=== PATIENT | female | born 1995 | race American Indian/Alaskan Native ===

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

== ENCOUNTER 2017-03-11 20:33 | Inpatient (IN) | payer OTHER ==
[2017-03-11] MEDS ORDERED: XYLOCAINE 2% INFILTRATI ONE (20:42)
[2017-03-11] MEDS ORDERED: MINERAL OIL PO PRN (20:42)
[2017-03-11] MEDS ORDERED: BRETHINE SUB-Q PRN (20:42)
[2017-03-11] MEDS ORDERED: BRETHINE IVP PRN (20:42)
[2017-03-11] MEDS ORDERED: CERVIDIL VG ONE (20:42)
[2017-03-11] MEDS ORDERED: SUBLIMAZE IV PRN (20:42)
[2017-03-11] MEDS ORDERED: ePHEDrine SULFATE IV PRN (20:42)
--- NOTE | 2017-03-11 20:51 | History and Physical Report ---
History of Present Illness Date of examination: 03/11/17 Date of admission: 03/11/17 20:33 Chief complaint: Here for induction of labor History of present illness: 21 y/o , now 39.1 weeks gestation here for induction of labor per [facility] rec due to obesity. care at [facility] since 10 weeks gestation. Hx of trich and chlamydia during this . 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: chlamydia, trichomonas Family/Genetic History: none Social history: no significant social history - Obstetrical History Expected Date of Delivery: 03/18/17 Actual Gestation: 39 Week(s) 1 Day(s) : 1 Para: 0 Number of Living Children: 0 Medications and Allergies Allergies Allergy/AdvReac Type Severity Reaction Status Date / Time cefpodoxime proxetil Allergy Hives Verified 09/23/15 09:37 [From Vantin] Home Medications Medication Instructions Recorded Confirmed Last Taken Type Acetaminophen [Tylenol] 1,000 mg PO Q6HR 03/11/17 03/11/17 03/10/17 History Review of Systems All systems: negative - Vital Signs Vital signs: Vital Signs Pulse Pulse Ox 123 H 97 03/11/17 20:48 03/11/17 20:48 Temp Pulse Resp BP Pulse Ox 123 H 97 03/11/17 20:48 03/11/17 20:48 - Physical Exam Breasts: Positive: deferred Cardiovascular: Regular rate Lungs: Positive: Clear to auscultation Abdomen: Positive: soft Genitourinary (Female): Positive: normal external genitalia Vulva: both: normal Vagina: Positive: normal moisture Deep Tendon Reflex Grade: Normal +2 - Obstetrical FHR: category 1 Uterine Contraction Monitor Mode: External Cervical Dilatation: 1 (nurse exam) Cervical Effacement Percentage: 30 station: -4 Uterine Contraction Pattern: Absent Uterine Contraction Intensity: Moderate Results Result Diagrams: 03/11/17 21:40 All other labs normal. Assessment and Plan A: Induction of labor at 39.1 weeks P: Cervadil to be removed this am Begin Pitocin
[2017-03-11] MEDS ORDERED: PITOCin/NS 20 UNIT/1000ML DRIP 20 UNITS/1,000 ML BAG IV SCH (21:00)
[2017-03-11 22:12] LABS: Hematocrit 37.3 % (30.3-42.9); Hemoglobin 12.3 gm/dl (10.1-14.3); Mean Corpuscular HGB Conc 33 % (30-34); Mean Corpuscular Hemoglobin 29 pg (28-32); Mean Corpuscular Volume 87 fl (79-97); Platelet Count 281 K/mm3 (140-440); Red Cell Distribution Width 14.8 % (13.2-15.2); White Blood Count 9.8 K/mm3 (4.5-11.0)
[2017-03-12] MEDS: STADOL IV PRN ×2 (02:43→05:15)
[2017-03-12] MEDS: LACTATED RINGERS 1,000 ML IV SCH ×2 (08:01→12:16)
[2017-03-12] MEDS ORDERED: ZOFRAN IV PRN (08:31)
[2017-03-12] MEDS ORDERED: PITOCin/NS 30 UNIT/500ML 30,000 MILLIUNITS/500 ML BAG IV ONE ×2 (08:32→12:14)
[2017-03-12] MEDS: PITOCin/NS 30 UNIT/500ML 30,000 MILLIUNITS/500 ML BAG IV SCH ×3 (11:00→15:53)
--- NOTE | 2017-03-12 12:07 | Anesthesia Consultation ---
Anesthesia Consult and Med Hx Date of service: 03/12/17 - Airway Anesthetic Teeth Evaluation: Good ROM Head & Neck: Adequate Mental/Hyoid Distance: Adequate Mallampati Class: Class II Intubation Access Assessment: Probably Good - Pre-Operative Health Status ASA Pre-Surgery Classification: ASA3 Proposed Anesthetic Plan: Epidural, Spinal - Pulmonary Hx Asthma: No COPD: No Hx Pneumonia: No - Cardiovascular System Hx Hypertension: No - Central Nervous System Hx Seizures: No Hx Psychiatric Problems: No - Endocrine Hx Renal Disease: No Hx End Stage Renal Disease: No Hx Hypothyroidism: No Hx Hyperthyroidism: No - Hematic Hx Anemia: No Hx Sickle Cell Disease: No - Other Systems Hx Alcohol Use: No Hx Obesity: Yes (Morbid obesity BMI 56.6)
[2017-03-12] MEDS ORDERED: NARCAN 2 MG/2 ML IV PRN (12:08)
[2017-03-12] MEDS ORDERED: ePHEDrine SULFATE IV PRN (12:08)
[2017-03-12] MEDS ORDERED: fentaNYL-BUPIV 2 MCG/ML-0.125% 200 MCG/100 ML BAG EPIDURAL SCH (13:00)
--- NOTE | 2017-03-12 13:34 | Event Note ---
Date: 03/12/17 O: VE 3-4/70/-2, Arom clear fluid, IUPC and FSE placed. Pit at 16 mu Cat I tracing A: Induction of labor due to obesity at 39.1 weeks P: Continue pitocin induction
[2017-03-12] MEDS ORDERED: CYTOTEC ONE (16:51)
[2017-03-12] MEDS ORDERED: CYTOTEC PR ONE (17:25)
[2017-03-12] MEDS ORDERED: PHENERGAN PO PRN (17:28)
[2017-03-12] MEDS ORDERED: BENADRYL PO PRN (17:28)
[2017-03-12] MEDS ORDERED: TUCKS PAD TP PRN ×2 (17:28→22:46)
[2017-03-12] MEDS ORDERED: LANSINOH TP PRN (17:28)
[2017-03-12] MEDS ORDERED: NORCO 5/325 PO PRN (17:28)
[2017-03-12] MEDS ORDERED: TYLENOL PO PRN (17:28)
--- NOTE | 2017-03-12 17:39 | Procedure Note ---
OB Delivery Note - Delivery Surgeon: ORALIA BONILLA Estimated blood loss: other (350) - Vaginal Delivery presentation: vertex Delivery position: OA Delivery induction: cervidil Delivery augmentation: rupture of membranes, pitocin Delivery monitor: external FHT, external uterine, internal FHT, internal uterine Route of delivery: Delivery placenta: spontaneous Delivery cord: 3 umbilical vessels Delivery laceration: 1st degree, other (periurethral) Delivery repair: vicryl Anesthesia: epidural Delivery comments: of a viable male 7#- 6oz at 1644 on 03/12/2017 over 1st degree perineal laceration and periurethral laceration. Repaired with 2-0 and 3-0 vicryl. Placenta delivered 3 VCI. FF @ U-1. Lochia small. Mother and baby doing well. - Infant A at 1 minute: 8 at 5 minutes: 9 Gender: Male (7# 6oz)
[2017-03-12] MEDS ORDERED: SODIUM CHLORIDE FLUSH SYRINGE 10 ML IV NR (18:00)
[2017-03-12] MEDS: MOTRIN PO SCH ×2 (18:17→23:08)
[2017-03-13] MEDS: MOTRIN PO SCH ×4 (05:54→23:23)
[2017-03-13 07:31] LABS: Hemoglobin 10.7 gm/dl (10.1-14.3)
--- NOTE | 2017-03-13 08:41 | Progress Note ---
Subjective Date of service: 03/13/17 Principal diagnosis: post deliver/;labor epidural Interval history: Patient seen post-delivery day 1, comfortable, ambulating, satisfied with anesthesia. Objective - Constitutional Vitals: Vital Signs - 12hr 03/12/17 03/13/17 03/13/17 23:08 00:20 05:54 Temperature 98.6 F Pulse Rate 77 Respiratory 18 16 18 Rate Blood Pressure 121/77 03/13/17 08:20 Temperature 98.1 F Pulse Rate 103 H Respiratory 18 Rate Blood Pressure 118/61 - Labs CBC & Chem 7: 03/13/17 06:45
--- NOTE | 2017-03-13 09:05 | Progress Note ---
Assessment and Plan A: PPD #1 - stable P: Discharge home today Subjective - Subjective Date of service: 03/13/17 Principal diagnosis: post deliver/;labor epidural Interval history: 21 y/o , now 39.1 weeks gestation here for induction of labor per [facility] rec due to obesity. care at [facility] since 10 weeks gestation. Hx of trich and chlamydia during this . Patient reports: appetite normal [place]: doing well Objective - Vital Signs Latest vital signs: Vital Signs Temp Pulse Resp BP Pulse Ox 03/13/17 08:20 98.1 F 103 H 18 118/61 03/13/17 05:54 18 03/13/17 00:20 98.6 F 77 16 121/77 03/12/17 23:08 18 03/12/17 20:00 98.6 F 69 16 114/78 03/12/17 19:05 98.7 F 103 H 20 112/66 03/12/17 18:11 96 H 156/78 03/12/17 17:56 96 H 146/74 03/12/17 17:41 108 H 142/98 03/12/17 17:18 103 H 142/78 03/12/17 17:11 105 H 124/79 03/12/17 16:56 99 H 126/66 03/12/17 16:41 98 H 150/102 03/12/17 16:31 103 H 100 03/12/17 16:30 118 H 54 L 03/12/17 16:26 113 H 144/96 97 03/12/17 16:21 116 H 98 03/12/17 16:16 85 99 03/12/17 16:12 88 133/68 03/12/17 16:11 89 99 03/12/17 16:06 103 H 98 03/12/17 16:01 94 H 99 03/12/17 15:56 102 H 97 03/12/17 15:55 84 135/76 03/12/17 15:51 81 98 03/12/17 15:46 87 98 03/12/17 15:41 92 H 97 03/12/17 15:40 84 131/72 03/12/17 15:36 85 97 03/12/17 15:31 86 97 03/12/17 15:26 105 H 97 03/12/17 15:25 92 H 124/70 03/12/17 15:21 86 98 03/12/17 15:16 82 98 03/12/17 15:11 97 H 98 03/12/17 15:10 88 135/78 03/12/17 15:06 89 97 03/12/17 15:01 91 H 98 03/12/17 14:57 81 140/78 03/12/17 14:56 88 98 03/12/17 14:51 96 H 99 03/12/17 14:46 89 97 03/12/17 14:42 89 133/79 03/12/17 14:41 99 H 98 03/12/17 14:36 86 98 03/12/17 14:31 89 96 03/12/17 14:27 88 138/80 03/12/17 14:26 88 98 03/12/17 14:21 98 H 97 03/12/17 14:16 92 H 98 03/12/17 14:12 100 H 138/80 03/12/17 14:11 98 H 97 03/12/17 14:06 102 H 99 03/12/17 13:57 92 H 129/70 97 03/12/17 13:55 18 03/12/17 13:52 92 H 97 03/12/17 13:47 94 H 97 03/12/17 13:46 98.3 F 92 H 18 123/74 03/12/17 13:42 93 H 98 03/12/17 13:41 85 123/74 03/12/17 13:37 100 H 98 03/12/17 13:32 97 H 98 03/12/17 13:27 90 98 03/12/17 13:25 105 H 130/69 03/12/17 13:22 94 H 96 03/12/17 13:17 93 H 93 03/12/17 13:16 89 93 03/12/17 13:12 83 96 03/12/17 13:10 90 127/72 03/12/17 13:07 90 96 03/12/17 13:06 95 H 94 03/12/17 13:02 89 97 03/12/17 12:59 91 H 93 03/12/17 12:57 86 97 03/12/17 12:56 88 122/65 03/12/17 12:52 93 H 95 03/12/17 12:47 89 97 03/12/17 12:44 76 87 07/31/17 12:42 87 97 03/12/17 12:41 95 H 143/64 03/12/17 12:37 79 97 03/12/17 12:32 94 H 99 03/12/17 12:27 88 97 03/12/17 12:25 94 H 128/61 03/12/17 12:22 95 H 98 03/12/17 12:20 92 H 134/57 03/12/17 12:17 101 H 97 03/12/17 12:16 90 123/60 03/12/17 12:12 95 H 98 03/12/17 12:10 99 H 120/57 03/12/17 12:07 92 H 98 03/12/17 12:06 97 H 123/64 03/12/17 12:05 98.4 F 95 H 18 123/64 03/12/17 12:02 100 H 98 03/12/17 11:59 104 H 107/57 03/12/17 11:58 95 H 122/60 03/12/17 11:57 74 100 03/12/17 11:52 98 H 98 03/12/17 11:51 93 H 127/60 03/12/17 11:49 93 H 141/64 03/12/17 11:47 96 H 134/62 95 03/12/17 11:46 105 H 144/63 03/12/17 11:43 110 H 144/107 03/12/17 11:42 57 L 85 03/12/17 11:41 96 H 136/65 03/12/17 11:39 96 H 135/60 03/12/17 11:38 102 H 132/63 03/12/17 11:37 100 H 99 03/12/17 11:36 80 70 L 03/12/17 11:32 119 H 96 03/12/17 11:27 95 H 97 03/12/17 11:24 92 H 94 03/12/17 11:22 93 H 98 03/12/17 11:17 98 H 97 03/12/17 11:12 105 H 96 03/12/17 11:09 86 133/72 94 03/12/17 11:07 91 H 97 03/12/17 11:02 94 H 99 03/12/17 10:57 90 98 03/12/17 10:52 99 H 99 03/12/17 10:47 90 98 03/12/17 10:42 92 H 96 03/12/17 10:40 98 H 134/69 03/12/17 10:37 95 H 98 03/12/17 10:32 92 H 98 03/12/17 10:27 96 H 98 03/12/17 10:22 95 H 97 03/12/17 10:17 109 H 99 03/12/17 10:12 104 H 97 03/12/17 10:09 99 H 136/71 03/12/17 10:07 111 H 98 03/12/17 10:02 103 H 99 03/12/17 09:58 101 H 135/73 03/12/17 09:57 103 H 99 03/12/17 09:09 100 H 124/71 Intake and Output 03/12/17 03/13/17 03/13/17 22:59 06:59 14:59 Intake Total 550 550 240 Output Total 200 Balance 350 550 240 Intake: Oral 250 250 240 Intake, Free Water 300 300 Output: Urine 200 Uretheral (Arora) 200 Other: Total, Intake Amount 250 250 240 # Voids Void 1 Estimated Blood Loss 350 - Exam Breasts: Present: deferred Cardiovascular: Present: Regular rate Lungs: Present: Clear to auscultation Abdomen: Present: soft Vulva: both: normal Uterus: Present: fundal height below umbilicus Extremities: Present: normal Deep Tendon Reflex Grade: Normal +2
--- NOTE | 2017-03-13 09:07 | Discharge Summary ---
Providers - Providers Date of Admission: 03/11/17 20:33 Date of discharge: 03/13/17 Attending physician: JOE MCCRAY MD Primary care physician: JOE MCCRAY MD Hospitalization Reason for admission: induction of labor Delivery: Episiotomy: none Laceration: 1st degree, other (periurethral) complications: none Discharge diagnosis: IUP at term delivered [place] baby: male Condition at discharge: Good Disposition: DC-01 TO HOME OR SELFCARE Plan - Provider Discharge Summary Activity: routine, no sex for 6 weeks, no strenuous exercise Diet: routine Instructions: routine Additional instructions: [] Smoking cessation referral if applicable(refer to patient education folder for contact #) [] Refer to [employer] Booklet Call your doctor immediately for: * Fever > 100.5 * Heavy vaginal bleeding ( >1 pad per hour) * Severe persistent headache * Shortness of breath * Reddened, hot, painful area to leg or breast * Drainage or odor from incision. * Keep incision clean and dry at all times and follow doctor's instructions regarding bathing/showering - Follow up plan Follow up: [facility] [Provider Group] - 6 Weeks
[2017-03-14] MEDS: MOTRIN PO SCH ×3 (05:18→18:47)
[2017-03-14 17:49] VITALS: BP 96/58
== END 2017-03-14 21:10 | disposition home or self-care (01) | DRG 775 ==
LOC: LD 20:33 → OB 03-12 18:42
PROVIDERS: ADMIT Obstetrics & Gynecology; ATTEND Obstetrics & Gynecology
PROC: 0HQ9XZZ Repair Perineum Skin, External Approach (ICD-10-PCS; principal; 2017-03-12)
PROC: 10E0XZZ Delivery of Products of Conception, External Approach (ICD-10-PCS; 2017-03-12)
PROC: 3E0S3CZ (ICD-10-PCS; 2017-03-12)
PROC: 00HU33Z Insertion of Infusion Device into Spinal Canal, Percutaneous Approach (ICD-10-PCS; 2017-03-12)
PROC: 3E0P7GC Introduction of Other Therapeutic Substance into Female Reproductive, Via Natural or Artificial Opening (ICD-10-PCS; 2017-03-12)
PROC: 10907ZC Drainage of Amniotic Fluid, Therapeutic from Products of Conception, Via Natural or Artificial Opening (ICD-10-PCS; 2017-03-12)
DX: O99.214 Obesity complicating childbirth (principal); Z3A.39 39 weeks gestation of pregnancy; Z68.43 Body mass index [BMI] 50.0-59.9, adult; Z37.0 Single live birth; E66.01 Morbid (severe) obesity due to excess calories; O70.0 First degree perineal laceration during delivery; O98.319 Other infections with a predominantly sexual mode of transmission complicating pregnancy, unspecified trimester; A56.8 Sexually transmitted chlamydial infection of other sites; A59.9 Trichomoniasis, unspecified
CPT/HCPCS: 36415; 59200; 85014; 85018; 85027; 86592; 86850; 86900; 86901; 99211; G0463; J0595; J2405; J2590; J3010; J7120

== ENCOUNTER 2018-12-23 12:21 | Emergency (ER) | payer MEDICAID, OTHER ==
--- NOTE | 2018-12-23 12:51 | Emergency Department Report ---
Blank Doc - Documentation Documentation: This is a 23-year-old female that is about 7 weeks that presents with vaginal bleeding and pelvic cramping. This initial assessment/diagnostic orders/clinical plan/treatment(s) is/are subject to change based on patient's health status, clinical progression and re- assessment by fellow clinical providers in the ED. Further treatment and workup at subsequent clinical providers discretion. Patient/guardians urged not to elope from the ED as their condition may be serious if not clinically assessed and managed. Initial orders include: 1- Patient sent to [facility] for further evaluation and treatment 2- labs 3- US OB 4- UA
[2018-12-23 13:39] LABS: Basophils % (Auto) 0.8 % (0.0-1.8); Eosinophils # (Auto) 0.1 K/mm3 (0.0-0.4); Eosinophils % (Auto) 2.2 % (0.0-4.3); Hematocrit 31.7 % (30.3-42.9); Hemoglobin 10.1 gm/dl (10.1-14.3); Lymphocytes # (Auto) 2.4 K/mm3 (1.2-5.4); Lymphocytes % (Auto) 42.1 % (13.4-35.0); Mean Corpuscular HGB Conc 32 % (30-34); Mean Corpuscular Volume 81 fl (79-97); Monocytes # (Auto) 0.6 K/mm3 (0.0-0.8); Monocytes % (Auto) 11.3 % (0.0-7.3); Platelet Count 251 K/mm3 (140-440); Red Blood Count 3.93 M/mm3 (3.65-5.03); Red Cell Distribution Width 16.8 % (13.2-15.2)
[2018-12-23 14:57] LABS: Bilirubin,Urine NEG (Negative); Blood,Urine LG (Negative); Color,Urine Red (Yellow); Mucus,Urine 2+ /HPF; Urobilinogen,Urine < 2.0 mg/dL (<2.0)
[2018-12-23 15:00] LABS: RBC,Urine > 182.0 /HPF (0.0-6.0); WBC,Urine > 182.0 /HPF (0.0-6.0)
--- NOTE | 2018-12-23 16:57 | Ultrasound Report ---
PROCEDURE: Transabdominal pelvic ultrasound. TECHNIQUE: Real-time transabdominal sonography in multiple planes of pelvis was performed with image documentation. HISTORY: recent pos preg, now <2 quant w/ heavy bleeding / COMPARISONS: Obstetrical ultrasound 12/02/2016. FINDINGS: Image quality is limited because the patient's bladder was not distended. The uterus measures 10.0 cm x 5.6 cm x 7.7 cm. The myometrium appears uniform. There are no focal uterine masses. The endometria l echo complex is unremarkable and measures approximately 11 mm. The ovaries appear normal in size. T here is minimal fluid in the cul-de-sac. IMPRESSION: Normal study. This document is electronically signed by Abdullahi Christy MD., Dec 23 2018 04:55:14 PM ET
--- NOTE | 2018-12-23 16:59 | Ultrasound Report ---
PROCEDURE: Transvaginal pelvic ultrasound. TECHNIQUE: Real-time transvaginal sonography in multiple planes of the pelvis was performed with edward ge documentation. HISTORY: recent pos preg, now <2 quant heavy bleeding / COMPARISONS: Obstetrical ultrasound 12/02/2016. FINDINGS: The uterus is retroverted. The myometrium appears uniform. Endometrial echo complex is uniform and me asures approximately 11 mm. Both ovaries appear normal in size. There is a tiny amount of free fluid in the cul-de-sac. IMPRESSION: Normal study. This document is electronically signed by Abdullahi Christy MD., Dec 23 2018 04:56:58 PM ET
--- NOTE | 2018-12-23 17:00 | Emergency Department Report ---
ED General Adult HPI - General Chief complaint: Vaginal Bleeding Stated complaint: MISCARRIAGE Time Seen by Provider: 12/23/18 12:37 Source: patient Mode of arrival: Ambulatory Limitations: No Limitations - History of Present Illness Initial comments: Patient is a 23-year-old female who states that she had 2 days of heavy vaginal bleeding with lower abdominal crampiness for the last 2 days. Patient states she is partially 2 months but has not seen a provider as of yet. Patient's appointment is next week. Patiently she may be 8 weeks by dates and took all pressures test approximately 3 weeks ago. Patient states the bleeding is slightly heavy. Does have some clots. Patient has a history of positive as far as her blood type. Patient denies any lightheadedness. Patient states the cramping is nonerythematous severity. - Related Data Home Medications Medication Instructions Recorded Confirmed Last Taken Acetaminophen [Tylenol] 1,000 mg PO Q6HR 03/11/17 03/11/17 03/10/17 Previous Rx's Medication Instructions Recorded Last Taken Type Ibuprofen [Ibu] 600 mg PO Q6HR PRN #20 tablet 12/23/18 Unknown Rx Nitrofurantoin Monohyd/M-Cryst 100 mg PO BID #14 capsule 12/23/18 Unknown Rx [Macrobid 100 mg Capsule] medroxyPROGESTERone ACETATE 5 mg PO DAILY #5 tablet 12/23/18 Unknown Rx [Provera] traMADol [Ultram] 50 mg PO Q6HR PRN #12 tablet 12/23/18 Unknown Rx Allergies Allergy/AdvReac Type Severity Reaction Status Date / Time cefpodoxime proxetil Allergy Hives Verified 09/23/15 09:37 [From Irina] ED Review of Systems ROS: Stated complaint: MISCARRIAGE Other details as noted in HPI Comment: All other systems reviewed and negative ED Past Medical Hx - Past Medical History Previous Medical History?: No Hx Hypertension: No Hx Congestive Heart Failure: No Hx Diabetes: No Hx Deep Vein Thrombosis: No Hx Renal Disease: No Hx Sickle Cell Disease: No Hx Seizures: No Hx Asthma: No Hx COPD: No Hx HIV: No - Surgical History Past Surgical History?: Yes Additional Surgical History: T/A TUBES IN EARS - Social History Smoking Status: Never Smoker Substance Use Type: None - Medications Home Medications: Home Medications Medication Instructions Recorded Confirmed Last Taken Type Acetaminophen [Tylenol] 1,000 mg PO Q6HR 03/11/17 03/11/17 03/10/17 History Ibuprofen [Ibu] 600 mg PO Q6HR PRN #20 tablet 12/23/18 Unknown Rx Nitrofurantoin Monohyd/M-Cryst 100 mg PO BID #14 capsule 12/23/18 Unknown Rx [Macrobid 100 mg Capsule] medroxyPROGESTERone ACETATE 5 mg PO DAILY #5 tablet 12/23/18 Unknown Rx [Provera] traMADol [Ultram] 50 mg PO Q6HR PRN #12 tablet 12/23/18 Unknown Rx ED Physical Exam - General Limitations: No Limitations General appearance: alert, in no apparent distress - Head Head exam: Present: atraumatic, normocephalic - Eye Eye exam: Present: normal appearance - ENT ENT exam: Present: mucous membranes moist - Neck Neck exam: Present: normal inspection - Respiratory Respiratory exam: Present: normal lung sounds bilaterally. Absent: respiratory distress, wheezes, rales, rhonchi - Cardiovascular Cardiovascular Exam: Present: regular rate, normal rhythm. Absent: systolic murmur, diastolic murmur, rubs, gallop - GI/Abdominal GI/Abdominal exam: Present: soft, tenderness (mild suprapubic pain), normal bowel sounds. Absent: distended, guarding, rebound, rigid - Extremities Exam Extremities exam: Present: normal inspection - Back Exam Back exam: Present: normal inspection - Neurological Exam Neurological exam: Present: alert, oriented X3 - Psychiatric Psychiatric exam: Present: normal affect, normal mood - Skin Skin exam: Present: warm, dry, intact, normal color. Absent: rash ED Course Vital Signs 12/23/18 12:46 Temperature 98.5 F Pulse Rate 82 Blood Pressure 140/86 ED Medical Decision Making - Lab Data Result diagrams: 12/23/18 13:16 Lab Results 12/23/18 12/23/18 12/23/18 Range/Units 13:16 13:16 13:20 WBC 5.7 (4.5-11.0) K/mm3 RBC 3.93 (3.65-5.03) M/mm3 Hgb 10.1 (10.1-14.3) gm/dl Hct 31.7 (30.3-42.9) % MCV 81 (79-97) fl MCH 26 L (28-32) pg MCHC 32 (30-34) % RDW 16.8 H (13.2-15.2) % Plt Count 251 (140-440) K/mm3 Lymph % (Auto) 42.1 H (13.4-35.0) % [place] % (Auto) 11.3 H (0.0-7.3) % Eos % (Auto) 2.2 (0.0-4.3) % Baso % (Auto) 0.8 (0.0-1.8) % Lymph # 2.4 (1.2-5.4) K/mm3 [place] # 0.6 (0.0-0.8) K/mm3 Eos # 0.1 (0.0-0.4) K/mm3 Baso # 0.0 (0.0-0.1) K/mm3 Seg Neutrophils % 43.6 (40.0-70.0) % Seg Neutrophils # 2.5 (1.8-7.7) K/mm3 HCG, Quant < 2 (0-4) mIU/mL Urine Color (Yellow) Urine Turbidity (Clear) Urine pH (5.0-7.0) Ur Specific [place] (1.003-1.030) Urine Protein (Negative) mg/dL Urine Glucose (UA) (Negative) mg/dL Urine Ketones (Negative) mg/dL Urine Blood (Negative) Urine Nitrite (Negative) Urine Bilirubin (Negative) Urine Urobilinogen (<2.0) mg/dL Ur Leukocyte Esterase (Negative) Urine WBC (Auto) (0.0-6.0) /HPF Urine RBC (Auto) (0.0-6.0) /HPF U Epithel Cells (Auto) (0-13.0) /HPF Urine Mucus /HPF Blood Type O POSITIVE Antibody Screen Negative 12/23/18 Range/Units 14:19 WBC (4.5-11.0) K/mm3 RBC (3.65-5.03) M/mm3 Hgb (10.1-14.3) gm/dl Hct (30.3-42.9) % MCV (79-97) fl MCH (28-32) pg MCHC (30-34) % RDW (13.2-15.2) % Plt Count (140-440) K/mm3 Lymph % (Auto) (13.4-35.0) % [place] % (Auto) (0.0-7.3) % Eos % (Auto) (0.0-4.3) % Baso % (Auto) (0.0-1.8) % Lymph # (1.2-5.4) K/mm3 [place] # (0.0-0.8) K/mm3 Eos # (0.0-0.4) K/mm3 Baso # (0.0-0.1) K/mm3 Seg Neutrophils % (40.0-70.0) % Seg Neutrophils # (1.8-7.7) K/mm3 HCG, Quant (0-4) mIU/mL Urine Color Red (Yellow) Urine Turbidity Cloudy (Clear) Urine pH 6.0 (5.0-7.0) Ur Specific [place] 1.026 (1.003-1.030) Urine Protein 100 mg/dl (Negative) mg/dL Urine Glucose (UA) 50 (Negative) mg/dL Urine Ketones Neg (Negative) mg/dL Urine Blood Lg (Negative) Urine Nitrite Neg (Negative) Urine Bilirubin Neg (Negative) Urine Urobilinogen < 2.0 (<2.0) mg/dL Ur Leukocyte Esterase Sm (Negative) Urine WBC (Auto) > 182.0 H (0.0-6.0) /HPF Urine RBC (Auto) > 182.0 (0.0-6.0) /HPF U Epithel Cells (Auto) 5.0 (0-13.0) /HPF Urine Mucus 2+ /HPF Blood Type Antibody Screen - Radiology Data [facility] [address] [place] [address] Ultrasound Report Signed Patient: ANDREW ROBERTS MR#: [id number] : 1995 Acct:[id number] Age/Sex: 23 / F ADM Date: 12/23/18 Loc: ED Attending Dr: Ordering Physician: ROBERTO ROBERTS MD Date of Service: 12/23/18 Procedure(s): US transvaginal Accession Number(s): [id number] cc: ROBERTO ROBERTS MD PROCEDURE: Transvaginal pelvic ultrasound. TECHNIQUE: Real-time transvaginal sonography in multiple planes of the pelvis was performed with image documentation. HISTORY: recent pos preg, now <2 quant heavy bleeding / COMPARISONS: Obstetrical ultrasound 12/02/2016. FINDINGS: The uterus is retroverted. The myometrium appears uniform. Endometrial echo complex is uniform and measures approximately 11 mm. Both ovaries appear normal in size. There is a tiny amount of free fluid in the cul-de-sac. IMPRESSION: Normal study. This document is electronically signed by Abdullahi Tellez MD., Dec 23 2018 04:56:58 PM ET Transcribed By: MRM Dictated By: ABDULLAHI TELLEZ MD Electronically Authenticated By: ABDULLAHI TELLEZ MD Signed Date/Time: 12/23/18 1659 DD/ 1502 TD/TT: 12/23/18 1502 - Medical Decision Making Patient is a 23-year-old female who took a home test and believes she was approximately 8 weeks with vaginal bleeding. Patient is noted to have a Quant is less than 2. Patient likely had a missed . Ultrasound was performed to rule out products of conception. Ultrasound was negative and patient likely is just restarting her menses. Patient discharged home.. Critical care attestation.: If time is entered above; I have spent that time in minutes in the direct care of this critically ill patient, excluding procedure time. ED Disposition Clinical Impression: UTI (urinary tract infection), Missed , Dysmenorrhea Disposition: - TO HOME OR SELFCARE Is pt being admited?: No Does the pt Need Aspirin: No Condition: Stable Instructions: Spontaneous Miscarriage (ED), Urinary Tract Infection in Women (ED) Prescriptions: Nitrofurantoin Monohyd/M-Cryst [Macrobid 100 mg Capsule] 100 mg PO BID #14 capsule Referrals: KENYON BUTLER MD [Primary Care Provider] - 3-5 Days Time of Disposition: 17:02
[2018-12-23 17:10] VITALS: BP 132/78
== END 2018-12-23 17:09 | disposition home or self-care (01) ==
LOC: ED 12:21
DX: O02.1 Missed abortion (principal); O23.41 Unspecified infection of urinary tract in pregnancy, first trimester; Z3A.08 8 weeks gestation of pregnancy; Z88.8 Allergy status to other drugs, medicaments and biological substances; Z96.22 Myringotomy tube(s) status
CPT/HCPCS: 36415; 76830; 76856; 81001; 84702; 85025; 86850; 86900; 86901; 99284

== ENCOUNTER 2020-05-10 17:56 | Emergency (ER) | payer SELFPAY ==
[2020-05-10] MEDS ORDERED: ACETAMINOPHEN 500 MG TAB PO ONE (18:08)
[2020-05-10] MEDS ORDERED: SODIUM CHLORIDE 0.9% 1000 ML 1,000 ML IV ONE (18:12)
--- NOTE | 2020-05-10 18:12 | Emergency Department Report ---
ED General Adult HPI - General Chief complaint: Weakness Stated complaint: HEADACHE/ABD PAIN Time Seen by Provider: 05/10/20 18:04 Source: patient, EMS Mode of arrival: Stretcher Limitations: No Limitations - History of Present Illness Initial comments: Patient is 24 years old female with no significant past medical history. Patient presented to the ER complaining of headache, abdominal pain, shortness of breath and cough for the last 3 days. Patient is also complaining of chills. Patient found to be febrile with a temperature of 103. Patient denied any contact with COVID-19 patient. - Related Data Home Medications Medication Instructions Recorded Confirmed Last Taken No Known Home Medications [No 05/10/20 05/10/20 Unknown Reported Home Medications] Allergies Allergy/AdvReac Type Severity Reaction Status Date / Time cefpodoxime proxetil Allergy Hives Verified 05/10/20 18:33 [From Irina] ED Review of Systems ROS: Stated complaint: HEADACHE/ABD PAIN Other details as noted in HPI Comment: All other systems reviewed and negative Constitutional: chills, fever ENT: congestion Respiratory: cough, shortness of breath Cardiovascular: denies: chest pain, palpitations Gastrointestinal: abdominal pain. denies: nausea, vomiting, diarrhea, constipation, hematemesis, melena, hematochezia Musculoskeletal: denies: back pain Neurological: denies: headache, weakness, numbness, paresthesias, confusion, abnormal gait ED Past Medical Hx - Past Medical History Hx Hypertension: No Hx Congestive Heart Failure: No Hx Diabetes: No Hx Deep Vein Thrombosis: No Hx Renal Disease: No Hx Sickle Cell Disease: No Hx Seizures: No Hx Asthma: No Hx COPD: No Hx HIV: No - Surgical History Additional Surgical History: T/A TUBES IN EARS - Social History Smoking Status: Never Smoker Substance Use Type: None - Medications Home Medications: Home Medications Medication Instructions Recorded Confirmed Last Taken Type No Known Home Medications [No 05/10/20 05/10/20 Unknown History Reported Home Medications] ED Physical Exam - General Limitations: No Limitations General appearance: alert, in no apparent distress - Head Head exam: Present: atraumatic, normocephalic, normal inspection - Eye Eye exam: Present: normal appearance - ENT ENT exam: Present: mucous membranes dry - Neck Neck exam: Present: normal inspection, full ROM. Absent: tenderness, meningismus, lymphadenopathy, thyromegaly - Respiratory Respiratory exam: Present: normal lung sounds bilaterally - Cardiovascular Cardiovascular Exam: Present: tachycardia, normal heart sounds - GI/Abdominal GI/Abdominal exam: Present: soft, normal bowel sounds. Absent: distended, tenderness, guarding, rebound, rigid, organomegaly, mass, bruit, pulsatile mass, hernia - Extremities Exam Extremities exam: Present: normal inspection, full ROM, normal capillary refill. Absent: pedal edema, calf tenderness - Back Exam Back exam: Present: normal inspection, full ROM. Absent: CVA tenderness (R), CVA tenderness (L) - Neurological Exam Neurological exam: Present: alert, oriented X3, CN II-XII intact, normal gait, reflexes normal - Psychiatric Psychiatric exam: Present: normal mood - Skin Skin exam: Present: warm, intact, normal color ED Course Vital Signs 05/10/20 05/10/20 18:09 20:14 Temperature 103 F H Pulse Rate 113 H 102 H Respiratory 17 Rate Blood Pressure 148/109 Blood Pressure 136/90 [Left] O2 Sat by Pulse 98 Oximetry ED Medical Decision Making - Lab Data Result diagrams: 05/10/20 18:21 05/10/20 18:21 - Radiology Data Radiology results: report reviewed - Medical Decision Making Patient is 24 years old female with no significant past medical history. Patient presented to the ER complaining of headache, abdominal pain, shortness of breath and cough for the last 3 days. Patient is also complaining of chills. Patient found to be febrile with a temperature of 103. Patient denied any contact with COVID-19 patient. Labs showed a significant UTI with a white blood cells of more than 180. CT abdomen pelvis showed evidence of right pyelonephritis. Patient received normal saline, Tylenol and Levaquin. Patient stated that she is feeling much better. Patient will be discharged on Levaquin 500 mg p.o. daily for 7 days and advised to follow-up with her primary doctor in the next 2 to 3 days and to return to the ER she develop any new symptoms. Critical care attestation.: If time is entered above; I have spent that time in minutes in the direct care of this critically ill patient, excluding procedure time. ED Disposition Clinical Impression: Fever, Pyelonephritis of right kidney Disposition: - TO HOME OR SELFCARE Is pt being admited?: No Condition: Stable Instructions: Acute Pyelonephritis (ED), Abdominal Pain (ED) Referrals: VALERIA HARVEY MD [Primary Care Provider] - 3-5 Days
[2020-05-10 18:36] LABS: Hematocrit 29.5 % (30.3-42.9); Hemoglobin 9.8 gm/dl (10.1-14.3); Mean Corpuscular HGB Conc 33 % (30-34); Mean Corpuscular Volume 81 fl (79-97); Platelet Count 281 K/mm3 (140-440); Red Blood Count 3.65 M/mm3 (3.65-5.03); Red Cell Distribution Width 16.4 % (13.2-15.2)
[2020-05-10 19:05] LABS: Alanine Aminotransferase 9 units/L (7-56); Albumin 3.1 g/dL (3.9-5); BUN/Creatinine Ratio 5; Blood Urea Nitrogen 4 mg/dL (7-17); Calcium 8.2 mg/dL (8.4-10.2); Hemolysis Index 6
[2020-05-10 19:13] LABS: Bilirubin,Direct < 0.2 mg/dL (0-0.2)
--- NOTE | 2020-05-10 19:45 | XRay Report ---
CHEST 1 VIEW INDICATION / CLINICAL INFORMATION: MAIN. Chest pain and dyspnea fever and cough FINDINGS: SUPPORT DEVICES: None. HEART / MEDIASTINUM: No significant abnormality. LUNGS / PLEURA: No significant pulmonary or pleural abnormality. No pneumothorax. ADDITIONAL FINDINGS: No significant additional findings. IMPRESSION: 1. No acute findings. Signer Name: Ermias Bedoya MD Signed: 05/10/2020 7:41 PM Workstation Name: [id number]
[2020-05-10 19:47] LABS: Total Cells Counted 100
[2020-05-10 19:48] LABS: Basophils % (Manual) 0 % (0.0-1.8); Eosinophils % (Manual) 0 % (0.0-4.3)
[2020-05-10 19:49] LABS: Hypochromasia 1+; Large Platelets Few; Ovalocytes Few; Platelet Estimate Consistent w Auto
--- NOTE | 2020-05-10 20:55 | Cat Scan Report ---
CT ABDOMEN AND PELVIS WITH IV CONTRAST INDICATION: abdominal pain. COMPARISON: None available. TECHNIQUE: Axial CT images were obtained through the abdomen and pelvis after 100 mL IV contrast. All CT scans a t this location are performed using CT dose reduction for ALARA by means of automated exposure contro l. FINDINGS -- ABDOMEN: Lung Bases: No acute abnormality. Liver: Normal. Gallbladder: Normal. Bile Ducts: Normal. Pancreas: Normal. Spleen: Normal. Adrenals: Normal. Right Kidney and Proximal Ureter: Small 1 cm cystlike lesion exophytically arising from the lower keeley e the right kidney.. Heterogeneous enhancement of the kidney Left Kidney and Proximal Ureter: Faint heterogeneous enhancement of the kidneys. Stomach and Bowel: Normal. Lymph Nodes: No significant adenopathy. Aorta: No significant abnormality. IVC: Normal. Additional Findings: None. FINDINGS -- PELVIS: Urinary Bladder and Distal Ureters: Urinary bladder is collapsed and unable to be evaluated.. Reproductive Organs: No acute abnormality. Appendix: Normal. Bowel: No acute abnormality. Free Fluid: None. Lymph Nodes: Several borderline enlarged inguinal nodes and mesenteric nodes are present.. Additional Findings: None. Skeletal System: No acute abnormality. IMPRESSION: 1. Faint heterogeneous enhancement of the kidneys. Although no significant perinephric inflammation/f atty stranding is identified early pyelonephritis can sometimes have this early appearance. No prior exams are available for comparison to exclude the possibility that this may represent a chronic findi ng. Signer Name: Ermias Bedoya MD Signed: 05/10/2020 8:51 PM Workstation Name: [id number]
[2020-05-10 21:28] LABS: Bacteria,Urine 2+ /HPF (Negative); Bilirubin,Urine NEG (Negative); Blood,Urine SM (Negative); Color,Urine Yellow (Yellow); Mucus,Urine FEW /HPF; WBC,Urine > 182.0 /HPF (0.0-6.0)
[2020-05-10 21:48] VITALS: BP 113/87
== END 2020-05-10 23:01 | disposition home or self-care (01) ==
LOC: ED 17:56
DX: N12 Tubulo-interstitial nephritis, not specified as acute or chronic (principal); R50.9 Fever, unspecified; Z88.8 Allergy status to other drugs, medicaments and biological substances; Z98.890 Other specified postprocedural states
CPT/HCPCS: 36415; 71045; 74177; 80048; 80076; 81001; 82140; 83690; 84703; 85007; 85025; 96361; 96365; 99285; J1956; J7030; Q9967